=== PATIENT | female | born 1965 | race Asian ===

== ENCOUNTER 2018-02-08 15:58 | Emergency (ER) | payer OTHER ==
[~2018-02-08] VITALS: Ht 167.6 cm; Wt 57.2 kg
[2018-02-08] MEDS ORDERED: IV NORMAL SALINE 1,000ML 1,000 ML IV SCH (16:45)
[2018-02-08 16:54] LABS: BASO % 1 % (0-3); EOS # 0.1 x10^3/uL (0.0-0.7); EOS % 1 % (0-3); HEMATOCRIT 41.1 % (36.0-47.0); LYMPH % 27 % (24-48); MEAN CORPUSCULAR HEMOGLOBIN 29 pg (25-35); MEAN CORPUSCULAR HGB CONC 34 g/dL (31-37); MEAN CORPUSCULAR VOLUME 85 fL (79-100); MONO # 0.7 x10^3/uL (0.0-1.1); MONO % 9 % (0-9); NEUT # 4.6 x10^3uL (1.8-7.7); NEUT % 62 % (31-73); PLATELET COUNT 209 x10^3/uL (140-400); RED BLOOD COUNT 4.84 x10^6/uL (3.50-5.40); RED CELL DISTRIBUTION WIDTH 13.8 % (11.5-14.5); WHITE BLOOD COUNT 7.4 x10^3/uL (4.0-11.0)
[2018-02-08] MEDS ORDERED: diphenhydrAMINE 50 MG/ML VIAL IV ONE (17:00)
[2018-02-08] MEDS ORDERED: FAMOTIDINE 20 MG/2 ML VIAL IVP ONE (17:00)
[2018-02-08] MEDS ORDERED: methylPREDNISolone SOD SUCC PF 125 MG/2 ML VIAL. IV ONE (17:00)
[2018-02-08 17:06] LABS: ALBUMIN 3.8 g/dL (3.4-5.0); ALBUMIN/GLOBULIN RATIO 1.1 (1.0-1.7); CALCIUM 9.2 mg/dL (8.5-10.1); CREATININE 0.9 mg/dL (0.6-1.0); GFR 66.3; POTASSIUM 3.3 mmol/L (3.5-5.1); TOTAL BILIRUBIN 0.2 mg/dL (0.2-1.0); TOTAL PROTEIN 7.4 g/dL (6.4-8.2)
--- NOTE | 2018-02-08 17:41 | PHYS DOC ---
Past History Past Medical History: Hypothyroid Past Surgical History: No Surgical History Alcohol Use: None Drug Use: None Adult General Chief Complaint Chief Complaint: ALLERGIC REACTION HPI HPI 52-year-old female patient complaining of gradual onset of non-pruritic generalized rash while she left home and was at a nail salon before starting to get any chemical material on her nails. Patient complaining of feeling causing her face with headache. Patient states she had dries milk fish that exported from [facility] and had the same one previously without allergic reaction. She denies shortness of breath and throat swelling. Review of Systems Review of Systems Constitutional: Denies fever or chills [] Eyes: Denies change in visual acuity, redness, or eye pain [] HENT: Denies nasal congestion or sore throat [] Respiratory: Denies cough or shortness of breath [] Cardiovascular: No additional information not addressed in HPI [] GI: Denies abdominal pain, nausea, vomiting, bloody stools or diarrhea [] : Denies dysuria or hematuria [] Musculoskeletal: Denies back pain or joint pain [] Integument: Reports rash Neurologic: Reports headache, denies focal weakness or sensory changes [] Endocrine: Denies polyuria or polydipsia [] All other systems were reviewed and found to be within normal limits, except as documented in this note. Current Medications Current Medications Current Medications Medications (Trade) Dose Ordered Sig/Natalie Start Time Stop Time Status Last Admin Dose Admin Diphenhydramine HCl (Benadryl) 50 mg 1X ONCE 02/08/18 17:00 02/08/18 17:01 DC 02/08/18 16:50 50 MG Famotidine (Pepcid Vial) 20 mg 1X ONCE 02/08/18 17:00 02/08/18 17:01 DC 02/08/18 16:50 20 MG Methylprednisolone Sodium Succinate (SOLU-Medrol 125MG VIAL) 125 mg 1X ONCE 02/08/18 17:00 02/08/18 17:01 DC 02/08/18 16:49 125 MG Sodium Chloride 1,000 ml @ 1,000 mls/hr Q1H 02/08/18 16:45 02/08/18 17:44 02/08/18 16:49 1,000 MLS/HR Allergies Allergies Allergies Coded Allergies Type Severity Reaction Last Updated Verified No Known Drug Allergies 02/08/18 No Physical Exam Physical Exam Constitutional: Well developed, well nourished, mild distress, non-toxic appearance. [] HENT: Normocephalic, atraumatic, bilateral external ears normal, oropharynx moist, no oral exudates, nose normal. [] Eyes: PERRLA, EOMI, conjunctiva normal, no discharge. [] Neck: Normal range of motion, no tenderness, supple, no stridor. [] Cardiovascular:Heart rate regular rhythm, no murmur [] Lungs & Thorax: Bilateral breath sounds clear to auscultation [] Abdomen: Bowel sounds normal, soft, no tenderness, no masses, no pulsatile masses. [] Skin: Warm, dry, generalized papular rash on face, ears, neck, trunk, back, upper and lower extremities Back: No tenderness, no CVA tenderness. [] Extremities: No tenderness, no cyanosis, no clubbing, ROM intact, no edema. [] Neurologic: Alert and oriented X 3, normal motor function, normal sensory function, no focal deficits noted. [] Psychologic: Affect normal, judgement normal, mood normal. [] Current Patient Data Vital Signs Vital Signs Date Time Temp Pulse Resp B/P (MAP) Pulse Ox O2 Delivery O2 Flow Rate FiO2 02/08/18 15:58 97.7 82 20 100 Room Air Lab Results Laboratory Tests Test 02/08/18 16:30 White Blood Count 7.4 x10^3/uL (4.0-11.0) Red Blood Count 4.84 x10^6/uL (3.50-5.40) Hemoglobin 14.0 g/dL (12.0-15.5) Hematocrit 41.1 % (36.0-47.0) Mean Corpuscular Volume 85 fL (79-100) Mean Corpuscular Hemoglobin 29 pg (25-35) Mean Corpuscular Hemoglobin Concent 34 g/dL (31-37) Red Cell Distribution Width 13.8 % (11.5-14.5) Platelet Count 209 x10^3/uL (140-400) Neutrophils (%) (Auto) 62 % (31-73) Lymphocytes (%) (Auto) 27 % (24-48) Monocytes (%) (Auto) 9 % (0-9) Eosinophils (%) (Auto) 1 % (0-3) Basophils (%) (Auto) 1 % (0-3) Neutrophils # (Auto) 4.6 x10^3uL (1.8-7.7) Lymphocytes # (Auto) 2.0 x10^3/uL (1.0-4.8) Monocytes # (Auto) 0.7 x10^3/uL (0.0-1.1) Eosinophils # (Auto) 0.1 x10^3/uL (0.0-0.7) Basophils # (Auto) 0.0 x10^3/uL (0.0-0.2) Sodium Level 136 mmol/L (136-145) Potassium Level 3.3 mmol/L (3.5-5.1) L Chloride Level 101 mmol/L (98-107) Carbon Dioxide Level 35 mmol/L (21-32) H Anion Gap 0 (6-14) L Blood Urea Nitrogen 19 mg/dL (7-20) Creatinine 0.9 mg/dL (0.6-1.0) Estimated GFR (Cockcroft-Gault) 66.3 BUN/Creatinine Ratio 21 (6-20) H Glucose Level 179 mg/dL (70-99) H Calcium Level 9.2 mg/dL (8.5-10.1) Total Bilirubin 0.2 mg/dL (0.2-1.0) Aspartate Amino Transferase (AST) 19 U/L (15-37) Alanine Aminotransferase (ALT) 27 U/L (14-59) Alkaline Phosphatase 53 U/L (46-116) Total Protein 7.4 g/dL (6.4-8.2) Albumin 3.8 g/dL (3.4-5.0) Albumin/Globulin Ratio 1.1 (1.0-1.7) EKG EKG [] Radiology/Procedures Radiology/Procedures [] Course & Med Decision Making Course & Med Decision Making Pertinent Labs reviewed. (See chart for details) Evaluation of patient in ER showed 52-year-old female patient with generalized rash without itching and shortness of breath after eating the right mystification. Patient felt better and rash resolved with treatment in ER. Patient had potassium of 3.3 and treated with potassium. Plan discharge patient home with diagnose of allergic rash. Dragon Disclaimer Dragon Disclaimer This electronic medical record was generated, in whole or in part, using a voice recognition dictation system. Departure Departure: Impression: Primary Impression: Rash due to allergy Additional Impression: Hypokalemia Disposition: HOME, SELF-CARE (At 1732) Condition: IMPROVED Referrals: SARA GOYAL DO (PCP) Patient Instructions: Hypokalemia, Rash Additional Instructions: Avoid of taking milk fish Take Benadryl as needed for rash Drink plenty of liquids Follow-up with your primary care physician in 3-5 days Return to ER if not getting better Problem Qualifiers TJ SIMONS MD Feb 08, 2018 17:41
[2018-02-08] MEDS ORDERED: POTASSIUM CHLORIDE 20 MEQ TABLET.ER. PO ONE (17:45)
[2018-02-08 18:10] VITALS: BP 139/82
== END 2018-02-08 18:20 | disposition home or self-care (01) ==
LOC: ER 15:58
DX: T78.49XA Other allergy, initial encounter (principal); E87.6 Hypokalemia; E03.9 Hypothyroidism, unspecified; X58.XXXA Exposure to other specified factors, initial encounter
CPT/HCPCS: 36415; 80053; 85025; 96361; 96374; 96375; 99284; J1200; J2930; S0028; J7030

== ENCOUNTER 2018-11-05 07:08 | Emergency (ER) | payer OTHER ==
[~2018-11-05] VITALS: Ht 167.6 cm; Wt 57.5 kg
[2018-11-05] MEDS ORDERED: METH4TAB2 PO (07:53)
[2018-11-05] MEDS ORDERED: HYDR25TA PO (07:53)
--- NOTE | 2018-11-05 07:54 | PHYS DOC ---
Past History Past Medical History: Hypothyroid Past Surgical History: Cholecystectomy, Other Alcohol Use: Occasionally Drug Use: None Adult General Chief Complaint Chief Complaint: SKIN RASH/ABSCESS HPI HPI Patient is a 53 year old female who presents with complaining of rash. Patient states she uses a new facial mask and had pruritic rash of her face since yesterday that getting better after taking Benadryl. Patient states she had more itching and rash on her face this morning. She denies shortness of breath and throat swelling. Patient had history of one episode of generalized rash after eating fish. Review of Systems Review of Systems Constitutional: Denies fever or chills [] Eyes: Denies change in visual acuity, redness, or eye pain [] HENT: Denies nasal congestion or sore throat [] Respiratory: Denies cough or shortness of breath [] Cardiovascular: No additional information not addressed in HPI [] GI: Denies abdominal pain, nausea, vomiting, bloody stools or diarrhea [] : Denies dysuria or hematuria [] Musculoskeletal: Denies back pain or joint pain [] Integument: Reports rash Neurologic: Denies headache, focal weakness or sensory changes [] Endocrine: Denies polyuria or polydipsia [] All other systems were reviewed and found to be within normal limits, except as documented in this note. Current Medications Current Medications Current Medications Medications (Trade) Dose Ordered Sig/Natalie Start Time Stop Time Status Last Admin Dose Admin Famotidine (Pepcid) 20 mg 1X ONCE 11/05/18 08:00 11/05/18 08:01 Hydroxyzine HCl (Atarax) 25 mg 1X ONCE 11/05/18 08:00 11/05/18 08:01 Methylprednisolone Sodium Succinate (SOLU-Medrol 125MG VIAL) 125 mg 1X ONCE 11/05/18 08:00 11/05/18 08:01 Allergies Allergies Allergies Coded Allergies Type Severity Reaction Last Updated Verified fish derived Allergy Unknown 11/05/18 Yes Physical Exam Physical Exam Constitutional: Well developed, well nourished, mild distress, non-toxic appearance. [] HENT: Normocephalic, atraumatic, bilateral external ears normal, oropharynx moist, no oral exudates, nose normal. [] Eyes: PERRLA, EOMI, conjunctiva normal, no discharge. [] Neck: Normal range of motion, no tenderness, supple, no stridor. [] Cardiovascular:Heart rate regular rhythm, no murmur [] Lungs & Thorax: Bilateral breath sounds clear to auscultation [] Skin: Warm, dry, no erythema, area of patchy rash on the face without sign of infection [] Neurologic: Alert and oriented X 3, normal motor function, normal sensory function, no focal deficits noted. [] Psychologic: Affect normal, judgement normal, mood normal. [] Current Patient Data Vital Signs Vital Signs Date Time Temp Pulse Resp B/P (MAP) Pulse Ox O2 Delivery O2 Flow Rate FiO2 11/05/18 07:15 97.8 72 18 100 Room Air EKG EKG [] Radiology/Procedures Radiology/Procedures [] Course & Med Decision Making Course & Med Decision Making Evaluation of patient in ER showed 53-year-old female patient with an allergic rash of her face after using new facial mask. Patient had patchy rash of her face without other rash or respiratory changes. Patient treated with Solu- Medrol and Pepcid and Atarax and felt better. Plan discharge patient home with diagnosis of allergic rash. Dragon Disclaimer Dragon Disclaimer This electronic medical record was generated, in whole or in part, using a voice recognition dictation system. Departure Departure: Impression: Primary Impression: Rash due to allergy Disposition: HOME, SELF-CARE (at 0755) Condition: STABLE Referrals: SARA GOYAL DO (PCP) Patient Instructions: Rash Additional Instructions: Drink plenty of liquids Follow-up with your primary care physician in 3-5 days Return to ER if not getting better Do not apply new facial mask Scripts Methylprednisolone (MEDROL) 4 Mg Tab.ds.pk 1 PKG PO UD for inflammation, #1 PKG Prov: TJ SIMONS MD 11/05/18 Hydroxyzine Hcl (HYDROXYZINE HCL) 25 Mg Tablet 1 TAB PO TID PRN for ITCHING, #20 TAB Prov: TJ SIMONS MD 11/05/18 TJ SIMONS MD Nov 05, 2018 07:54
[2018-11-05] MEDS ORDERED: hydrOXYzine HCL 25 MG TABLET PO ONE (08:00)
[2018-11-05] MEDS ORDERED: methylPREDNISolone SOD SUCC PF 125 MG/2 ML VIAL. IM ONE (08:00)
[2018-11-05] MEDS ORDERED: FAMOTIDINE 20 MG TABLET PO ONE (08:00)
[2018-11-05 08:32] VITALS: BP 148/90
== END 2018-11-05 08:32 | disposition home or self-care (01) ==
LOC: ER 07:08
DX: T78.49XA Other allergy, initial encounter (principal); E03.9 Hypothyroidism, unspecified; Z91.013 Allergy to seafood; X58.XXXA Exposure to other specified factors, initial encounter
CPT/HCPCS: 96372; 99283; J2930

== ENCOUNTER 2019-03-25 12:40 | Observation (INO) | payer OTHER ==
[~2019-03-25] VITALS: Ht 167.6 cm; Wt 57.2 kg
[~2019-03-25 12:40] MED LIST: HYDR25TA PO; METH4TAB2 PO
--- NOTE | 2019-03-25 13:02 | PHYS DOC ---
Past History Past Medical History: Hypothyroid Past Surgical History: Cholecystectomy, Other Alcohol Use: Occasionally Drug Use: None Adult General Chief Complaint Chief Complaint: NEURO SYMPTOMS/DEFICITS [facility] HPI 53-year-old female presents with facial droop and decreased muscle strength on the left side of her face. The patient noticed this around 1 PM yesterday, 24 hours ago. She did not want to come to the hospital last night. She went to work today and she can feel that her smile is not even. She does not believe that she can fully close her left eye either. Her colleagues at work noticed that her smile was not even I encouraged her to come the emergency room. Patient denies any upper extremity or lower extremity weakness, tingling, change in sensation. She is able to walk without difficulty. She does believe that her speech is s lurred. It is slightly different due to her lip is not moving the same. She's had no difficulty finding words for understanding other people. She denies headache. The patient was feeling normal prior to this episode. No history of stroke. Denies fever or chills. Review of Systems Review of Systems Constitutional: Denies fever or chills [] Eyes: Denies change in visual acuity, redness, or eye pain [] HENT: Denies nasal congestion or sore throat [] Respiratory: Denies cough or shortness of breath [] Cardiovascular: No additional information not addressed in HPI [] GI: Denies abdominal pain, nausea, vomiting, bloody stools or diarrhea [] : Denies dysuria or hematuria [] Musculoskeletal: Denies back pain or joint pain [] Integument: Denies rash or skin lesions [] Neurologic: Left-sided facial droop. Denies headache.[] Endocrine: Denies polyuria or polydipsia [] All other systems were reviewed and found to be within normal limits, except as documented in this note. Allergies Allergies Allergies Coded Allergies Type Severity Reaction Last Updated Verified fish derived Allergy Unknown 11/05/18 Yes Physical Exam Physical Exam Constitutional: Well developed, well nourished, no acute distress, non-toxic appearance. [] HENT: Normocephalic, atraumatic, bilateral external ears normal, oropharynx moist, no oral exudates, nose normal. [] Eyes: PERRLA, EOMI, conjunctiva normal, no discharge. [] Neck: Normal range of motion, no tenderness, supple, no stridor. [] Cardiovascular:Heart rate regular rhythm, no murmur [] Lungs & Thorax: Bilateral breath sounds clear to auscultation [] Abdomen: Bowel sounds normal, soft, no tenderness, no masses, no pulsatile masses. [] Skin: Warm, dry, no erythema, no rash. [] Back: No tenderness, no CVA tenderness. [] Extremities: No tenderness, no cyanosis, no clubbing, ROM intact, no edema. [] Neurologic: Alert and oriented X 3, normal motor function, normal sensory function. Left facial droop at the mouth, unable to tightly closed left eye, forehead raises to command and spontaneously, but does not fully depress. Normal speech, strength in the bilateral upper and lower extremities 5 out of 5. No coordination difficulty. [] Psychologic: Affect normal, judgement normal, mood normal. [] EKG EKG Sinus rhythm, rate 78, normal axis, no ST elevation or depression, right bundle branch block.[] Radiology/Procedures Radiology/Procedures [] Impressions: RS Compliance Statement: One or more of the following individualized dose reduction techniques were utilized for this examination: 1. Automated exposure control 2. Adjustment of the mA and/or kV according to patient size 3. Use of iterative reconstruction technique CT HEAD WITHOUT CONTRAST History: Right-sided facial droop since yesterday. Right eye blurriness. Comparison: None. Procedure: Axial images are obtained of the head from the skull base through the vertex without IV contrast. Findings: The ventricles and sulci are normal for the patient's age. No mass-effect, midline shift, hemorrhage, extra-axial fluid collection, or obvious acute infarction is identified. Basilar cisterns are patent. Bone windows demonstrate no acute calvarial abnormality. The visualized paranasal sinuses are clear. Mastoid air cells are well aerated. IMPRESSION: No acute intracranial abnormality. Electronically signed by: Sakina Cardoso MD (03/25/2019 1:27 PM) [facility] DICTATED AND SIGNED BY: SAKINA CARDOSO MD DATE: 03/25/19 [id number] CC: ELLA CERVANTES DO; SARA GOYAL DO ~ Course & Med Decision Making Course & Med Decision Making Pertinent Labs and Imaging studies reviewed. (See chart for details) Patient's head CT is negative. Her labs are unremarkable. Her exam shows some slight decreased sensation over the left cheek. My exam shows inability to fully prescribe lips on the left. She is also unable to fully close her left eye down tight. She does have spontaneous elevation of the right and left forehead. W hen the nurse performed the NIH stroke scale, she thought she had slight drift of both lower extremities. I did not find this to be obvious on my exam. The patient is quite concerned. I discussed this case with Dr. Anderson and he has agreed to admit the patient and to consult neurology. The patient is in agreement with this plan. [] Dragon Disclaimer Dragon Disclaimer This electronic medical record was generated, in whole or in part, using a voice recognition dictation system. Departure Departure: Impression: Primary Impression: Facial droop Additional Impression: Galicia palsy Disposition: 09 ADMITTED INPATIENT Admitting Physician: Rosie Anderson Condition: STABLE Referrals: SARA GOYAL DO (PCP) Problem Qualifiers ELLA CERVANTES DO Mar 25, 2019 13:02
[2019-03-25 13:13] LABS: BASO % 1 % (0-3); EOS # 0.1 x10^3/uL (0.0-0.7); EOS % 1 % (0-3); HEMOGLOBIN 14.8 g/dL (12.0-15.5); LYMPH # 1.7 x10^3/uL (1.0-4.8); LYMPH % 24 % (24-48); MEAN CORPUSCULAR HEMOGLOBIN 29 pg (25-35); MEAN CORPUSCULAR HGB CONC 34 g/dL (31-37); MEAN CORPUSCULAR VOLUME 85 fL (79-100); MONO # 0.4 x10^3/uL (0.0-1.1); MONO % 6 % (0-9); NEUT # 4.9 x10^3uL (1.8-7.7); NEUT % 69 % (31-73); PLATELET COUNT 206 x10^3/uL (140-400); RED BLOOD COUNT 5.17 x10^6/uL (3.50-5.40); RED CELL DISTRIBUTION WIDTH 13.7 % (11.5-14.5); WHITE BLOOD COUNT 7.1 x10^3/uL (4.0-11.0)
[2019-03-25 13:19] LABS: ALBUMIN 4.3 g/dL (3.4-5.0); ALBUMIN/GLOBULIN RATIO 1.1 (1.0-1.7); CALCIUM 9.6 mg/dL (8.5-10.1); CREATININE 0.8 mg/dL (0.6-1.0); GFR 75.6; POTASSIUM 3.1 mmol/L (3.5-5.1); TOTAL BILIRUBIN 0.3 mg/dL (0.2-1.0); TOTAL PROTEIN 8.2 g/dL (6.4-8.2)
--- NOTE | 2019-03-25 13:30 | RAD ---
RS Compliance Statement: One or more of the following individualized dose reduction techniques were utilized for this examination: 1. Automated exposure control 2. Adjustment of the mA and/or kV according to patient size 3. Use of iterative reconstruction technique CT HEAD WITHOUT CONTRAST History: Right-sided facial droop since yesterday. Right eye blurriness. Comparison: None. Procedure: Axial images are obtained of the head from the skull base through the vertex without IV contrast. Findings: The ventricles and sulci are normal for the patient's age. No mass-effect, midline shift, hemorrhage, extra-axial fluid collection, or obvious acute infarction is identified. Basilar cisterns are patent. Bone windows demonstrate no acute calvarial abnormality. The visualized paranasal sinuses are clear. Mastoid air cells are well aerated. IMPRESSION: No acute intracranial abnormality. Electronically signed by: Lenin Cardoso MD (03/25/2019 1:27 PM) [facility]
[2019-03-25 15:05] VITALS: BP 178/90
--- NOTE | 2019-03-25 16:05 | EKG ---
[address] [address] Test Date: 2019-03-25 Test Time: 12:48:52 Pat Name: GAVIN GAMBOA Department: Room: Gender: F [employer] Installer: MADAN : 1965 Requested By: ELLA CERVANTES Order Number: [id number] Reading MD: Measurements Intervals [place] Rate: 78 P: 56 MS: 136 QRS: 4 QRSD: 86 T: 30 QT: 384 QTc: 441 Interpretive Statements SINUS RHYTHM INCOMPLETE RIGHT BUNDLE BRANCH BLOCK QRS(T) CONTOUR ABNORMALITY CONSIDER ANTEROLATERAL MYOCARDIAL DAMAGE POSSIBLY ABNORMAL ECG RI6.01 No previous ECG available for comparison
[2019-03-25] MEDS ORDERED: LEVO75TA PO (16:40)
[2019-03-25 18:23] VITALS: BP 160/79
[2019-03-25] MEDS ORDERED: POTASSIUM CHLORIDE 20 MEQ TABLET.ER. PO ONE (20:00)
[2019-03-25] MEDS ORDERED: LISINOPRIL 20 MG TABLET PO SCH (21:00)
[2019-03-25] MEDS ORDERED: methylPREDNISolone SOD SUCC PF 125 MG/2 ML VIAL. IV ONE (21:00)
[2019-03-25] MEDS: ACYCLOVIR 200 MG CAPSULE PO SCH (21:44)
[2019-03-25 21:48] VITALS: BP 162/82
[2019-03-26 05:04] VITALS: BP 145/74
[2019-03-26] MEDS: ACYCLOVIR 200 MG CAPSULE PO SCH ×2 (05:04→09:49)
[2019-03-26 06:48] LABS: HEMATOCRIT 45.3 % (36.0-47.0); RED BLOOD COUNT 5.26 x10^6/uL (3.50-5.40); WHITE BLOOD COUNT 7.7 x10^3/uL (4.0-11.0)
[2019-03-26 06:52] LABS: ALBUMIN 3.9 g/dL (3.4-5.0); CALCIUM 9.6 mg/dL (8.5-10.1); CREATININE 0.8 mg/dL (0.6-1.0); GFR 75.6; TOTAL BILIRUBIN 0.6 mg/dL (0.2-1.0); TOTAL PROTEIN 7.9 g/dL (6.4-8.2)
[2019-03-26 08:09] VITALS: BP 118/68
[2019-03-26] MEDS ORDERED: methylPREDNISolone SOD SUCC PF 125 MG/2 ML VIAL. IV SCH (09:00)
[2019-03-26] MEDS ORDERED: ACYC400T PO (10:16)
[2019-03-26] MEDS ORDERED: LISI-334 PO (11:45)
[2019-03-26 12:12] VITALS: BP 154/61
--- NOTE | 2019-03-26 12:51 | HP ---
ADMIT DATE: HISTORY OF PRESENT ILLNESS: The patient is a 53-year-old female patient who came to the Emergency Room with facial droop and decreased muscle strength on the left side of her face. She noted around 1:00 p.m. yesterday afternoon 24 hours ago, not want to come to the hospital last night, she went to work ____. She does not believe that she cannot fully close her left eye either. Her colleagues were noticed that her smile was not even and encouraged her to come to the Emergency Room. She denied any upper extremity or lower extremity weakness, tingling, change in sensation. She is able to walk without difficulty. She does not believe that her speech is slurred. She has no difficulty finding words or understanding other people. Denied any headache or blurring of vision. She was evaluated in the Emergency Room, has had a CT scan of the head, which was unremarkable and was admitted for further evaluation. She did receive a dose of methylprednisolone and then was started on Solu-Medrol 60 mg IV 3 times a day. PAST MEDICAL HISTORY: Significant for hypothyroidism. PAST SURGICAL HISTORY: Unremarkable. ALLERGIES: She is allergic to FISH DERIVED CEREALS. MEDICATIONS: She is currently on following medications: She is on levothyroxine 75 mcg once a day. FAMILY HISTORY: Noncontributory. SOCIAL HISTORY: She is unmarried and does not smoke or drink alcohol. PHYSICAL EXAMINATION: GENERAL: On arrival to the Emergency Room, she looked well and was clearly in no apparent respiratory distress. No pallor, jaundice, cyanosis or thyromegaly. No jugular venous distention. No lower limb edema. VITAL SIGNS: Her heart rate was 72, blood pressure was 163/81, temperature was 98, respiratory rate was 18 and oxygen saturation was 99%. HEAD, EYES, EARS, NOSE AND THROAT: Showed normocephalic, atraumatic. NECK: Supple. HEART: Showed normal first and second heart sounds with no gallop, rub or murmur. CHEST: Clear to auscultation. No crepitation, rhonchi. ABDOMEN: Scaphoid, soft, nontender. NEUROLOGIC: She is awake, alert, responding appropriately. She has left-sided lower motor neuron facial palsy with positive Galicia's phenomena as she is unable to close her left eye. Otherwise, all other cranial nerves are intact. EXTREMITIES: She moves extremities without difficulty. LABORATORY DATA: Her lab work on admission showed a serum sodium 139, potassium 3.1, chloride 101, bicarbonate 32, anion gap of 6, BUN 8, creatinine 0.8, estimated GFR was 75 mL per minute. Her glucose 143, calcium was 9.6. Total bilirubin, AST, ALT, alkaline phosphatase were normal. Total protein was 8.2, albumin was 4.3. The patient was admitted with diagnosis of left-sided Galicia's palsy. She was continued on IV Solu-Medrol. We did consult Dr. Rodriguez to see her. Her CT scan showed that the ventricles and sulci are normal for the patient's age, no mass effect, midline shift, hemorrhage, extraaxial fluid collection or obvious acute infarction identified. Basilar cisterns are patent. Bone windows demonstrate no acute calvarial abnormality. The visualized paranasal sinuses are clear. Mastoid air cells are well aerated. LISANDRA DIAMOND MD DR: KENRICK/bartolo JOB#: [id number] / [id number]
--- NOTE | 2019-03-26 17:42 | CONS ---
DATE OF CONSULTATION: REFERRING PHYSICIAN: Dr. Anderson. REASON FOR CONSULTATION: Left facial droop. HISTORY OF PRESENT ILLNESS: This is a 53-year-old right-handed female who was admitted through Emergency Room after she presented with 24-hour history of left facial drooping, difficulty with swallowing and chewing on the left side. She also complains of intermittent global headaches. She denies nausea, vomiting, photophobia, phonophobia, chest pain, shortness of breath or palpitation, dysarthria, dysphagia, weakness or paresthesia. Initial nonenhanced head CT scan revealed no evidence of acute intracranial process. The patient denies any recent infections around the head or disease. PAST MEDICAL HISTORY: Significant for hypertension, hypothyroidism and right carpal tunnel release. FAMILY HISTORY: Noncontributory. CURRENT HOME MEDICATIONS: Hydroxyzine 25 mg t.i.d., levothyroxine 75 mcg p.o. daily. ALLERGIES: FISH DIET. REVIEW OF SYSTEMS: A 10-point review of system was performed as mentioned above in history of present illness. PHYSICAL EXAMINATION: GENERAL: Well-developed, well-nourished female, not in acute distress. She weighs 57.2 kilos. VITAL SIGNS: Blood pressure 160/79, respiratory rate 20, pulse is 77, temperature 97.8, oxygen saturation is 98% on room air. HEENT: Normocephalic, atraumatic, otherwise unremarkable. NECK: Supple. Negative for carotid bruit, lymphadenopathy or thyromegaly. LUNGS: Clear to A and P. CARDIOVASCULAR: Regular rate and rhythm, normal S1, S2. There is no S3, S4 or murmur. ABDOMEN: Soft. Bowel sounds positive. EXTREMITIES: Negative for cyanosis, clubbing, pitting edema. NEUROLOGICAL EXAM: Mental Status: The patient is alert and oriented x 3. Speech is fluent. There is no language dysfunction. Memory, judgment, and abstracting thinking are normal. The patient denies hallucination or delusion. CRANIAL NERVES: Visual sierra of the pupils are reactive to light and accommodation. The extraocular movements are intact. There is no facial sensory deficit. Hearing slightly diminished on the left side compared to that on the right side. There is a left facial weakness of peripheral type including the forehead and face. The palate is elevated symmetrically. Sternocleidomastoid muscles are powerful bilaterally. The patient shrugs her shoulders symmetrically and protrudes her tongue in the midline without fasciculation or atrophy. She had difficulty whistling. Motor: No focal muscle bulk was seen. The tone is normal. The strength is 5/5 throughout. Sensory examination revealed normal pinprick, light touch, vibratory and position senses. Deep tendon reflexes were symmetric and active without pathologic responses. Gait and coordination were normal. IMPRESSION: 1. Left Galicia's palsy. 2. History of hypertension and hypothyroidism. RECOMMENDATION: We will start the patient on Solu-Medrol. The first dose will be 125 mg IV, then taper to 60 mg t.i.d. We will start the patient also on acyclovir at 400 mg p.o. 5 times daily and lisinopril 20 mg p.o. daily. The patient can patch left eye to prevent dryness. M Sade VALVERDE MD DR: ATUL/bartolo JOB#: [id number] / [id number]
--- NOTE | 2019-03-26 20:41 | DS ---
DATE OF DISCHARGE: 03/26/2019 HISTORY OF PRESENT ILLNESS: The patient is a 53-year-old female patient who came with right-sided weakness and difficulty closing her left eye. She was diagnosed with Galicia's palsy and was seen by Dr. Rodriguez who recommended course of acyclovir as well as Medrol Dosepak. She did receive Solu-Medrol initially at 125 mg once and then 60 mg 3 times a day. She did actually well. She denied any weakness, tingling or numbness. Denied any headache. Denied any difficulty walking. She continued to have left-sided facial droop and difficulty closing her left eye; however, I did not see any blisters on her left pinna or external auditory meatus PHYSICAL EXAMINATION: GENERAL: When I examined her this afternoon, she looked well and was in no apparent respiratory distress. No pallor, jaundice, cyanosis or thyromegaly. No jugular venous distention. No lower limb edema. VITAL SIGNS: Her heart rate was 72, blood pressure was 154/61, temperature was 97.9, respiratory rate was 16 and oxygen saturation was 98%. HEAD, EYES, EARS, NOSE AND THROAT: Showed normocephalic, atraumatic. NECK: Supple. HEART: Showed normal first and second heart sounds with no gallop, rub or murmur. CHEST: Clear to auscultation. No crepitation or rhonchi. ABDOMEN: Distended, soft, nontender. No guarding or rigidity. No organomegaly. All hernial orifices intact. Bowel sounds normal. NEUROLOGIC: She was awake, alert. She has lower motor neuron and left-sided facial palsy. All other cranial nerves are intact. She moves extremities without difficulty. She ambulates without assistance or assistive devices. LABORATORY DATA: This morning showed white cell count 7700, hemoglobin 15, hematocrit 45, MCV 86 and platelet count of 223,000. Her serum sodium was 137, potassium 4, chloride 102, bicarbonate 26, anion gap of 9, BUN 12, creatinine 0.8, estimated GFR was 75 mL per minute. Her glucose 176, calcium was 9.6. Total bilirubin, AST, ALT, alkaline phosphatase were normal. Total protein was 7.9, albumin was 3.9. DISCHARGE MEDICATIONS: She was discharged home to continue on acyclovir 400 mg 5 times a day for 5 days, hydroxyzine 25 mg 3 times a day as needed, levothyroxine sodium 75 mcg once a day, lisinopril 10 mg once a day and Solu-Medrol with Dosepak. FINAL DISCHARGE DIAGNOSES: Left side Galicia's palsy, hypokalemia, hypothyroidism, hypertension, hyperglycemia. FOLLOWUP: She was advised to follow with her primary care physician at [facility] to make sure that her blood pressure is well controlled and that her blood sugar is not elevated just because she is on steroids. LISANDRA DIAMOND MD DR: KENRICK/bartolo JOB#: [id number] / [id number]
--- NOTE | 2019-03-27 00:30 | PN ---
DATE: SUBJECTIVE: The patient denies any new medical or neurological complaints. She feels much better. Her blood pressure has been under control and her facial drooping has been less. She denies headaches or any other new medical or any other new neurological complaints. OBJECTIVE: GENERAL: Well-developed, well-nourished female, not in acute distress. VITAL SIGNS: Blood pressure 118/68, respiratory rate 16, pulse is 74 and regular, temperature 97.9, oxygen saturation is 98% on room air. HEENT: Normocephalic, atraumatic, otherwise unremarkable. NECK: Supple. Negative for carotid bruit, lymphadenopathy or thyromegaly. LUNGS: Clear to A and P. CARDIOVASCULAR: Regular rate and rhythm, normal S1, S2. There is no S3, S4 or murmur. ABDOMEN: Soft. Bowel sounds positive. EXTREMITIES: Negative for cyanosis, clubbing or edema. NEUROLOGICAL EXAM: Normal mental status. Cranial nerves continue to have mild Galicia's phenomena. The symptoms of Galicia's palsy has been improved from yesterday. Otherwise, unremarkable. No focal motor or sensory deficit. Deep tendon reflexes were symmetric and active, without pathology responses. Gait and coordination are normal. IMPRESSION: 1. Galicia's palsy -- The patient is making a good progress from yesterday. 2. Hypertension. 3. Hypothyroidism. RECOMMENDATIONS: 1. Continue with current management. On discharge, the patient will continue on acyclovir 400 mg 5 times daily for 5 days and Medrol Dosepak as instructed. 2. Follow up with Dr. Valverde after 1 week from discharge. M Sade VALVERDE MD DR: ATUL/bartolo JOB#: [id number] / [id number]
== END 2019-03-26 12:30 | disposition home or self-care (01) ==
LOC: ER 12:40 → ICU 14:05 → INTOOBSV 14:05
PROVIDERS: ADMIT Internal Medicine; ATTEND Internal Medicine
DX: G51.0 Bell's palsy (principal); Z90.49 Acquired absence of other specified parts of digestive tract; E03.9 Hypothyroidism, unspecified; E87.6 Hypokalemia; I10 Essential (primary) hypertension; R73.9 Hyperglycemia, unspecified
CPT/HCPCS: 36415; 70450; 80053; 80061; 84484; 85025; 85027; 87641; 93005; 96374; 96376; 97161; 97165; 99284; G0378; J2930; G0379; 99285-25